=== PATIENT | male | born 1940 | race Caucasian/White ===

== ENCOUNTER → 2017-10-26 | Outpatient (CLI) | payer MEDICARE ==
--- NOTE | 2017-10-26 10:14 | RAD ---
Renal ultrasound, 10/26/2017: History: Abnormal kidney function The right kidney measures 13.8 cm in length while the left kidney measures 13.2 cm. There is a 2.5 cm cyst in the lower pole of the left kidney. There appear to be at least 2 nonobstructing calculi in both kidneys. There is no evidence of significant hydronephrosis. Limited views of the urinary bladder demonstrate a moderately large prostate impressing upon its posterior wall. Bilateral ureteral jets are present. IMPRESSION: 1. Small bilateral nonobstructing intrarenal calculi. 2. Small left renal cyst. 3. Moderate nonspecific prostatic enlargement.
== END | disposition home or self-care (01) ==
LOC: US 08:44
PROVIDERS: ATTEND Nurse Practitioner Family
DX: N20.0 Calculus of kidney (principal); N28.1 Cyst of kidney, acquired; N40.0 Benign prostatic hyperplasia without lower urinary tract symptoms
CPT/HCPCS: 76770

== ENCOUNTER → 2018-06-03 | Outpatient (CLI) | payer MEDICARE ==
--- NOTE | 2018-06-03 15:18 | RAD ---
3 views of the lumbar spine compared to radiographs dated February 15, 2018 for spondylolisthesis, low back pain, postop. FINDINGS: There has been interval pedicle screw and pili fixation of L5-S1, with no hardware abnormality identified. There is persistent anterolisthesis of L5 on S1, with near complete obliteration of the intervertebral disc space at this level. The remainder of the lumbar spine demonstrates straightening of the normal lordosis. No acute fractures. Extensive atherosclerosis. IMPRESSION: 1. Postsurgical and postoperative changes lumbar spine as described. 2. Extensive atherosclerosis. Electronically signed by: Ricci Veronica MD (06/03/2018 3:15 PM) [id number]
== END | disposition home or self-care (01) ==
LOC: RAD 09:41
PROVIDERS: ATTEND Neurological Surgery
DX: M40.46 Postural lordosis, lumbar region (principal); M43.16 Spondylolisthesis, lumbar region; I70.0 Atherosclerosis of aorta; Z98.1 Arthrodesis status; Z98.890 Other specified postprocedural states
CPT/HCPCS: 72100

== ENCOUNTER → 2020-09-09 | Outpatient (CLI) | payer MEDICARE ==
--- NOTE | 2020-09-10 08:29 | RAD ---
PQRS Compliance Statement: One or more of the following individualized dose reduction techniques were utilized for this examinat ion: 1. Automated exposure control 2. Adjustment of the mA and/or kV according to patient size 3. Use of iterative reconstruction technique CT THORAX WO Clinical Indication: Reason: LUNG CA Comparison: None. TECHNIQUE: Helical CT imaging of the chest is performed without IV contrast. 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 No fusion of the sternum is identified. Three-vessel cor onary artery disease. There is no adenopathy in the chest. The great vessels are normal caliber. Card iac size normal, no pericardial effusion. The central airways are patent. There is no pleural abnormality. Right middle lobe calcified granulom a. Mild atelectasis or scarring in the basilar left lower lobe. Lungs are otherwise clear. Atherosclerotic abdominal aorta and its branches. There are nonobstructing left renal calculi versus vascular calcifications. Cervical spine fusion hardware. No acute bone abnormality. 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 IMPRESSION: 1. No acute pulmonary process. 2. No adenopathy. Electronically signed by: Gordon Kumar MD (09/10/2020 8:26 AM) [id number]
== END ==
LOC: CT 09:38
PROVIDERS: ATTEND Internal Medicine Pulmonary Disease
DX: C34.10 Malignant neoplasm of upper lobe, unspecified bronchus or lung (principal); I70.0 Atherosclerosis of aorta; N20.0 Calculus of kidney; M47.814 Spondylosis without myelopathy or radiculopathy, thoracic region; M43.22 Fusion of spine, cervical region; J98.4 Other disorders of lung
CPT/HCPCS: 71250